=== PATIENT | female | born 1935 | race Caucasian/White ===

== ENCOUNTER → 2016-11-14 | Outpatient (CLI) | payer MEDICARE, OTHER ==
[2015-08-28 21:40] VITALS: BP 121/69
== END | disposition home or self-care (01) ==
LOC: SPEC 07:33
PROVIDERS: ATTEND Internal Medicine
DX: I10 Essential (primary) hypertension (principal)
CPT/HCPCS: 80061

== ENCOUNTER → 2016-12-09 | Outpatient (CLI) | payer MEDICARE, OTHER ==
[2015-08-28 21:40] VITALS: BP 121/69
== END | disposition home or self-care (01) ==
LOC: SPEC 07:46
PROVIDERS: ATTEND Internal Medicine
DX: I48.91 Unspecified atrial fibrillation (principal)
CPT/HCPCS: 36415; 85610

== ENCOUNTER → 2017-01-02 | Outpatient (CLI) | payer MEDICARE, OTHER ==
[2015-08-28 21:40] VITALS: BP 121/69
[2017-01-02 08:35] LABS: CALCIUM 8.7 mg/dL (8.5-10.1); CREATININE 1.2 mg/dL (0.6-1.0); MAGNESIUM 1.8 mg/dL (1.8-2.4)
== END | disposition home or self-care (01) ==
LOC: SPEC 08:16
PROVIDERS: ATTEND Internal Medicine
DX: I10 Essential (primary) hypertension (principal); I70.0 Atherosclerosis of aorta
CPT/HCPCS: 36415; 80048; 83735; 85610

== ENCOUNTER → 2017-03-30 | Outpatient (CLI) | payer MEDICARE, OTHER ==
[2015-08-28 21:40] VITALS: BP 121/69
[2017-03-30 14:35] LABS: CALCIUM 8.8 mg/dL (8.5-10.1); GFR 53.1; POTASSIUM 4.1 mmol/L (3.5-5.1)
== END | disposition home or self-care (01) ==
LOC: SPEC 14:15
PROVIDERS: ATTEND Internal Medicine Cardiovascular Disease
DX: I48.91 Unspecified atrial fibrillation (principal); E63.9 Nutritional deficiency, unspecified; M12.9 Arthropathy, unspecified; R53.83 Other fatigue
CPT/HCPCS: 36415; 80048

== ENCOUNTER → 2017-07-14 | Outpatient (CLI) | payer MEDICARE, OTHER ==
[2015-08-28 21:40] VITALS: BP 121/69
== END | disposition home or self-care (01) ==
LOC: SPEC 11:57
PROVIDERS: ATTEND Internal Medicine
DX: I48.91 Unspecified atrial fibrillation (principal); I10 Essential (primary) hypertension
CPT/HCPCS: 36415; 85610

== ENCOUNTER → 2017-08-27 | Outpatient (CLI) | payer MEDICARE, OTHER ==
[2015-08-28 21:40] VITALS: BP 121/69
[2017-08-27 09:41] LABS: CALCIUM 8.9 mg/dL (8.5-10.1); CREATININE 1.1 mg/dL (0.6-1.0); GFR 47.6; POTASSIUM 4.3 mmol/L (3.5-5.1)
== END | disposition home or self-care (01) ==
LOC: SPEC 08:46
PROVIDERS: ATTEND Internal Medicine Cardiovascular Disease
DX: M79.89 Other specified soft tissue disorders (principal)
CPT/HCPCS: 36415; 80048

== ENCOUNTER → 2017-08-29 | Outpatient (CLI) | payer MEDICARE, OTHER ==
[2015-08-28 21:40] VITALS: BP 121/69
[2017-08-29 14:43] LABS: FREE T4 0.92 ng/dL (0.76-1.46); THYROID STIM HORMONE (TSH) 2.542 uIU/mL (0.358-3.740)
== END | disposition home or self-care (01) ==
LOC: SPEC 10:05
PROVIDERS: ATTEND Otolaryngology
DX: E04.1 Nontoxic single thyroid nodule (principal)
CPT/HCPCS: 84439; 84443

== ENCOUNTER → 2021-01-31 | Outpatient (CLI) | payer MEDICARE, OTHER ==
[2015-08-28 21:40] VITALS: BP 121/69
--- NOTE | 2021-01-31 16:20 | RAD ---
US RIGHT LOWER EXTREMITY ARTERIAL DUPLEX EVAL, US DPLX ARTR EXTREM LOWER BILAT Indication: Reason: NON-HEALING WOUND TO RT PLANTAR FOOT, HTN / Spl. Instructions: / History: Comparison: None. Procedure: Arterial pressures are measured in the arms and ankles. Real-time grayscale, color flow D oppler, and Doppler spectral waveform analysis of the arterial system of the lower extremity is perfo rmed. Findings: Right arm: 114 mm Hg. Right ankle: 140 mm Hg. Right leg TOÑO: 1.3. Left arm: 120 mm Hg. Left ankle: 136 mm Hg. Left leg TOÑO: 1.3. TOÑO interpretation: Greater than 1.4 Calcified noncompressible vessels 0.96 to 1.4 Generally normal 0.81-0.95 Mild disease 0.51-0.80 Moderate disease 0.31-0.50 Moderate to severe disease 0.3 or below Severe disease Findings: Right lower extremity: Triphasic or biphasic waveforms throughout the right lower extremity. Mildly l imited velocity within the peroneal artery measures 173 cm/s. Moderate distal atheromatous plaque. IMPRESSION: 1. Mildly elevated velocity within the right peroneal artery, may indicate 30-49 percent stenosis. 2. Normal bilateral ankle brachial indices. Electronically signed by: Nolan Clark DO (01/31/2021 4:18 PM) [id number]
== END ==
LOC: US 12:58
PROVIDERS: ATTEND Emergency Medicine Undersea and Hyperbaric Medicine
DX: I70.201 Unspecified atherosclerosis of native arteries of extremities, right leg (principal); L89.894 Pressure ulcer of other site, stage 4; L89.893 Pressure ulcer of other site, stage 3
CPT/HCPCS: 93923; 93926

== ENCOUNTER → 2021-05-09 | Outpatient (CLI) | payer MEDICARE, OTHER ==
[2015-08-28 21:40] VITALS: BP 121/69
--- NOTE | 2021-05-09 15:56 | RAD ---
EXAM: XR FOOT_RIGHT 3 VIEWS 05/09/2021 9:53 AM CLINICAL INDICATION: Foot pain COMPARISON: None TECHNIQUE: 3 views of the right foot FINDINGS: The bones are diffusely demineralized. There is a subacute mildly displaced fracture of th e third metatarsal neck, new from 02/08/2021. There is new vague sclerosis in the second metatarsal hea d, which could also be a subacute nondisplaced fracture. There is new patchy sclerosis in the base of the great toe proximal phalanx and possibly increased patchy sclerosis at the great toe metatarsal h ead, indeterminate and could be degenerative or related to fractures. No definite osseous destruction . Alignment is normal. No focal soft tissue abnormality. IMPRESSION: 1. Subacute healing fractures of the third metatarsal neck and likely of the second metatarsal head. 2. New patchy sclerosis in the base of the great toe proximal phalanx and possibly increased patchy s clerosis in the head of the great toe metatarsal, indeterminate. Electronically signed by: Yumiko Garcia MD (05/09/2021 3:53 PM) [id number]
== END ==
LOC: RAD 09:39
PROVIDERS: ATTEND Podiatrist
DX: S92.331D Displaced fracture of third metatarsal bone, right foot, subsequent encounter for fracture with routine healing (principal); M25.871 Other specified joint disorders, right ankle and foot; X58.XXXD Exposure to other specified factors, subsequent encounter
CPT/HCPCS: 73630